=== PATIENT | male | born 1965 | race African-American/Black ===

== ENCOUNTER 2019-07-19 08:38 | Emergency (ER) | payer BC, OTHER ==
[~2019-07-19] VITALS: Ht 185.4 cm; Wt 132.0 kg
[2019-07-19] MEDS ORDERED: MECLIZINE 25MG TABLET PO ONE (12:00)
[2019-07-19] MEDS ORDERED: LORAZEPAM 0.5MG TABLET PO ONE (12:00)
[2019-07-19 13:20] LABS: BASOPHILS % 0.8 % (0.0-2.0); HEMATOCRIT. 51.1 % (42.0-52.0); HEMOGLOBIN. 17.1 g/dL (14.0-18.0); LYMPHOCYTES % 30.9 % (20.0-50.0); MEAN CORPUSCULAR HEMOGLOBIN 28.4 pg (28.0-32.0); MEAN PLATELET VOLUME 8.6 fl (7.4-10.4); MONOCYTES % 8.9 % (2.0-8.0); NEUTROPHILS % 54.4 % (40.0-76.0); PLATELET 177 x1000/uL (130-400); RED BLOOD CELL COUNT 6.01 mill/uL (4.7-6.1); RED CELL DISTRIBUTION WIDTH 14.6 % (11.6-14.6)
[2019-07-19 13:24] LABS: CHLORIDE 106 mEq/L (98-107)
[2019-07-19 14:30] VITALS: BP 131/88
== END 2019-07-19 15:00 | disposition home or self-care (01) ==
LOC: ER 08:38
DX: R42 Dizziness and giddiness (principal); F41.9 Anxiety disorder, unspecified; E11.9 Type 2 diabetes mellitus without complications; I10 Essential (primary) hypertension
CPT/HCPCS: 36415; 80053; 85025; 93005; 99284; J8597